=== PATIENT | male | born 1955 | race Caucasian/White ===

== ENCOUNTER 2022-02-22 09:02 | Outpatient (REF) | payer OTHER, SELFPAY ==
[2021-12-13 07:08] VITALS: BP 130/54; BP 132/58
[2022-01-29 08:53] VITALS: BP 148/64; BMI 27.0
[2022-02-22 10:34] LABS: Blood Urea Nitrogen 21 mg/dL (9-16); Estimated Glomerular Filt Rate > 60
== END 2022-02-22 09:03 | disposition home or self-care (01) ==
LOC: HO.LAB 09:02
PROVIDERS: PCP Nurse Practitioner; Visit Provider Internal Medicine
DX: I73.9 Peripheral vascular disease, unspecified (principal)
CPT/HCPCS: 36415; 82565; 84520

== ENCOUNTER 2022-08-16 10:16 | Day surgery (SDC) | payer OTHER, SELFPAY ==
[2022-06-05 07:14] VITALS: BP 122/76; BP 138/52; BMI 26.9
--- NOTE | 2022-08-15 10:47 | P.CONAN_ITS ---
HPI - Anesthesia Eval Consult details Narrative: 67yo M for Colonoscopy Cardiac cleared. OK to stop plavix. 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 Hx mult PCIs, last stent 2013. [place] 2007) [facility] Past Medical History Medical History (Updated 08/16/22 @ 10:05 by Cathy Qiu, RN) Bradycardia Elevated cholesterol History of ETT History of pericarditis HTN (hypertension) Hx of coronary artery disease Hx of sleep apnea Myocardial infarction PVD (peripheral vascular disease) Surgical History Surgical History (Updated 08/16/22 @ 10:01 by Cathy Qiu RN) History of nasal surgery History of temporal artery biopsy Hx of CABG Hx of colonoscopy Hx of vasectomy Social History Social History Patient Tobacco Use Status: Former Tobacco user Quit Date: 2005 Tobacco use type: Cigarette Cigarette Packs Per Day: 1 Years Smoked: 40 Are you DNR?: No Advance Directives: No Advance Directives Information Provided: Yes Nutrition Risks: No Nutritional Risk Meds Allergies Allergy/AdvReac Type Severity Reaction Status Date / Time No Known Allergies [NKA] Allergy Mild UNKNOWN Unverified 11/25/19 14:59 Home Medications Medication Instructions Recorded Confirmed Last Taken Type amlodipine 10 mg tablet 10 mg PO DAILY 08/15/22 08/15/22 08/16/22 History aspirin 81 mg tablet 81 mg PO DAILY 08/15/22 08/15/22 08/15/22 History atorvastatin 80 mg tablet 80 mg PO BEDTIME 08/15/22 08/15/22 08/15/22 History brimonidine 0.2 % eye drops 1 drp ophthalmic (eye) BID 08/15/22 08/15/22 08/16/22 History carvedilol 3.125 mg tablet 3.125 mg PO BID 08/15/22 08/15/22 08/15/22 History cilostazol 50 mg tablet 50 mg PO BID 08/15/22 08/15/22 08/11/22 History clopidogrel 75 mg tablet 75 mg PO DAILY 08/15/22 08/15/22 08/11/22 History lisinopril 40 mg tablet 40 mg PO DAILY 08/15/22 08/15/22 08/16/22 History magnesium tab PO 08/15/22 08/15/22 History multivitamin 1 tab PO DAILY 06/08/23 06/08/23 06/08/23 History Exam Exam Date and Time: August 15, 2022 1048 Assessment and Plan Assessment Anesthesia Assessment: Chart Reviewed
[2022-08-16 06:08] VITALS: BMI 29.4
[2022-08-16 10:32] VITALS: BP 119/68; PULSE 75; RESP 18; TEMP 36.6; O2SAT 98; BMI 27.2
[2022-08-16] MEDS: Lactated Ringers 1,000 ML 50 ML IVCONT (11:03)
[2022-08-16 12:44] VITALS: BP 108/63; PULSE 71; RESP 16; TEMP 36.1; O2SAT 95
--- NOTE | 2022-08-16 12:51 | PM.OP ---
Brief Operative Note Date of Service: 08/16/22 Pre-op diagnosis: Screening Post-op diagnosis: other (Colon polyps) Procedure: Colonoscopy to the cecum and TI with bx/removal of polyp at 50cm with placement of 2 clips, cold snare polypectomy at 20cm with placement of 1 clip, and hot snare polypectomy of rectal polyp with placement of 1 Resolution clip. Surgeon: Reji Powell Anesthesia: MAC Was an Six Pack Packer used for this Procedure?: No Estimated blood loss (mL): 2.0 Pathology: other (A. Polyp at 50cm) Condition: stable Disposition: PACU
[2022-08-16 12:59] VITALS: BP 120/65; PULSE 66; RESP 14; O2SAT 96
[2022-08-16 13:14] VITALS: BP 125/66; PULSE 68; RESP 14; TEMP 36.8; O2SAT 96
--- NOTE | 2022-08-16 13:21 | OP_ITS ---
DATE OF SERVICE: 08/16/2022 SURGEON: Reji Powell MD INDICATIONS: The patient presents for evaluation of personal history of tubular adenoma of the colon and colorectal cancer screening. Full consent has been obtained from him for this, including risks of bleeding and perforation. PREOPERATIVE DIAGNOSIS: Personal history of tubular adenoma of the colon. POSTOPERATIVE DIAGNOSIS: Personal history of tubular adenoma of the colon, colon polyps, diverticulosis, and internal hemorrhoids. PROCEDURE PERFORMED: Colonoscopy to the cecum and terminal ileum with cold snare polypectomy, biopsy and removal of polyp, hot snare polypectomy, and placement of 4 resolution clips. ESTIMATED BLOOD LOSS: COMPLICATIONS: ANESTHESIA: Monitored anesthesia care. ASSISTANTS: SPECIMENS: DESCRIPTION OF PROCEDURE: The patient was placed in the left lateral decubitus position. The digital rectal exam revealed no abnormalities. The Olympus video pediatric colonoscope was entered into the rectum and advanced to the cecum with the assistance of abdominal wall pressure and then turning him into the supine position. Once in the cecum, I did identify normal-appearing cecal pouch with appendiceal orifice and a normal-appearing ileocecal valve. The terminal ileum was cannulated and appeared normal. The scope was withdrawn back in the colon. The entire cecum and ileocecal valve appeared normal. The scope was then slowly withdrawn assessing all mucosal surfaces carefully. Preparation was excellent. At 50 cm was an approximately 4 or 5 mm polyp, which was removed with the cold biopsy forceps in piecemeal fashion. The polyp was removed completely. I then placed 2 resolution clips onto the polypectomy site with good deployment and good hemostasis. At an area between 15 and 20 cm was an approximately 5 mm polyp, which was removed by cold snare polypectomy. However, the piece was not recovered. There was no sign of any residual polyp nor significant bleeding, but I did place a single resolution clip onto the polypectomy site with good deployment and good hemostasis. In the rectum, there was an approximately 5 or 6 mm polyp, which appeared to be grossly adenomatous, and this was removed by hot snare polypectomy. However, again the specimen was not recovered as it was basically fulgurated by the polypectomy. The polypectomy site appeared clean, without any sign of residual polyp nor bleeding. I did place a single resolution clip onto the polypectomy site with good deployment and good hemostasis. I did not visualize any other polyps, colitis, nor angiodysplasia. There was a mild amount of sigmoid diverticulosis. In the rectum, scope was retroflexed visualizing internal hemorrhoids, but no other pathology. The rectal mucosa appeared normal. The scope was straightened and withdrawn from the patient he tolerated the procedure well and was returned to recovery area in stable condition. IMPRESSION: 1. Colon polyps. 2. Diverticulosis. 3. Internal hemorrhoids. PLAN: The results of the biopsies will be checked. I would recommend a repeat colonoscopy in 5 years. He was advised to resume his aspirin tomorrow, 08/17, as he had held it just for today. He was advised to resume the clopidogrel and cilostazol on Friday, 08/19, as he had held those two medications since 2-3 days ago. I would recommend a repeat colonoscopy in 5 years. He will otherwise see me on a p.r.n. basis. MD DELORIS Tinsley/BRYCE / [id number] MTDD
== END 2022-08-16 13:35 | disposition home or self-care (01) ==
PROVIDERS: PCP Nurse Practitioner; Visit Provider Internal Medicine
PROC: 0DJD8ZZ Inspection of Lower Intestinal Tract, Via Natural or Artificial Opening Endoscopic (ICD-10-PCS; CPT 45378; principal; 2022-08-16 11:30)
DX: Z12.11 Encounter for screening for malignant neoplasm of colon (principal); Z86.010 Personal history of colon polyps; K63.5 Polyp of colon; D12.5 Benign neoplasm of sigmoid colon; K62.1 Rectal polyp; K57.30 Diverticulosis of large intestine without perforation or abscess without bleeding; K64.8 Other hemorrhoids; I25.10 Atherosclerotic heart disease of native coronary artery without angina pectoris; Z95.5 Presence of coronary angioplasty implant and graft; Z95.1 Presence of aortocoronary bypass graft; I10 Essential (primary) hypertension; E78.5 Hyperlipidemia, unspecified; I25.2 Old myocardial infarction; I73.9 Peripheral vascular disease, unspecified; Z79.82 Long term (current) use of aspirin; Z79.899 Other long term (current) drug therapy; Z87.891 Personal history of nicotine dependence
CPT/HCPCS: 45385; 45380; 88305